=== PATIENT | male | born 1990 | race Caucasian/White ===

== ENCOUNTER 2017-05-22 18:45 | Emergency (ER) | payer MEDICAID, OTHER ==
[~2017-05-22] VITALS: Ht 188 cm; Wt 84.1 kg
[~2017-05-22 18:45] MED LIST: DICY10CA88 PO; NO HOME MEDS; ONDA4TAB59 PO; ORPH100T2 PO
[2017-05-22] MEDS ORDERED: normal saline 1000ml 1,000 ML IV ONE (20:15)
[2017-05-22 20:24] LABS: BASOPHILS % (AUTO) 0.2 % (0-1); EOSINOPHILS # (AUTO) 0.3 X10'3 (0-0.9); EOSINOPHILS % (AUTO) 7.3 % (0-6); HEMATOCRIT 43.3 % (42.0-52.0); HEMOGLOBIN 14.7 g/dl (14.0-17.9); LYMPHOCYTES # (AUTO) 1.7 X10'3 (1.1-4.8); LYMPHOCYTES % (AUTO) 35.7 % (21-51); MEAN CORPUSCULAR HEMOGLOBIN 30.3 PG (27.0-31.0); MEAN CORPUSCULAR VOLUME 88.9 FL (78-98); MEAN PLATELET VOLUME 8.3 FL (7.4-10.4); MONOCYTES # (AUTO) 0.7 X10'3 (0-0.9); MONOCYTES % (AUTO) 15.8 % (2-12); NEUTROPHILS # (AUTO) 1.9 X10'3 (1.8-7.7); PLATELET COUNT 241 X10'3 (140-440); RED BLOOD COUNT 4.87 X10'6 (4.70-6.10); RED CELL DISTRIBUTION WIDTH 12.4 % (11.5-14.5); WHITE BLOOD COUNT 4.7 X10'3 (4.5-11.0)
[2017-05-22] MEDS ORDERED: levoFLOXACIN 750MG TABLET PO ONE (20:35)
[2017-05-22 20:52] LABS: ALANINE AMINOTRANSFERASE 26 U/L (12-78); ALBUMIN 3.5 G/DL (3.4-5.0); ALBUMIN/GLOBULIN RATIO 0.9 (1.1-1.5); ALKALINE PHOSPHATASE 90 IU/L (46-116); ANION GAP 5 (8-16); ASPARTATE AMINO TRANSFERASE 22 U/L (10-37); BILIRUBIN,TOTAL 0.2 MG/DL (0.1-1.0); BLOOD UREA NITROGEN 10 MG/DL (7-18); BUN/CREATININE RATIO 11.5 (5.4-32.0); CALCIUM 8.7 MG/DL (8.5-10.1); CHLORIDE 102 MMOL/L (99-107); CREATININE 0.87 MG/DL (0.60-1.10); GLUCOSE 111 MG/DL (70-104); POTASSIUM 3.4 MMOL/L (3.5-5.1); SODIUM 137 MMOL/L (135-145); TOTAL CARBON DIOXIDE 30.3 MMOL/L (24-32); TOTAL PROTEIN 7.3 G/DL (6.4-8.2); eGFR > 90 ML/MIN
[2017-05-22] MEDS ORDERED: LEVO750T21 PO (21:09)
[2017-05-22 21:32] VITALS: BP 131/72
== END 2017-05-22 21:33 | disposition home or self-care (01) ==
LOC: ER 18:46
DX: R05 Cough (principal); Z79.899 Other long term (current) drug therapy
CPT/HCPCS: 36415; 71046; 80053; 83605; 85025; 87040; 99285; J7030

== ENCOUNTER 2018-05-01 20:54 | Emergency (ER) | payer MEDICAID, OTHER ==
[~2018-05-01] VITALS: Ht 188 cm; Wt 86.0 kg
[2018-05-01 20:57] VITALS: BP 146/109
[2018-05-01] MEDS ORDERED: ACYC-202 PO (22:18)
== END 2018-05-01 22:32 | disposition home or self-care (01) ==
LOC: ER 20:55
DX: B02.9 Zoster without complications (principal); M25.511 Pain in right shoulder; R21 Rash and other nonspecific skin eruption; M54.5 Low back pain; Z79.2 Long term (current) use of antibiotics; Z79.899 Other long term (current) drug therapy
CPT/HCPCS: 99283

== ENCOUNTER 2018-05-20 06:15 | Emergency (ER) | payer MEDICAID, OTHER ==
[~2018-05-20] VITALS: Ht 188 cm; Wt 87.6 kg
[2018-05-20 06:23] VITALS: BP 129/60
--- NOTE | 2018-05-20 08:43 | NUR ---
PT CAME IN WITH LACERATION ABOUT THE EYE. PT STATES HE FELL IN THE SHOWER. STORY SOUNDS QUESTIONABLE
== END 2018-05-20 09:24 | disposition home or self-care (01) ==
LOC: ER 06:15
DX: S01.112A Laceration without foreign body of left eyelid and periocular area, initial encounter (principal); S01.81XA Laceration without foreign body of other part of head, initial encounter; F17.200 Nicotine dependence, unspecified, uncomplicated; W01.198A Fall on same level from slipping, tripping and stumbling with subsequent striking against other object, initial encounter; Y93.89 Activity, other specified; Y92.091 Bathroom in other non-institutional residence as the place of occurrence of the external cause; Y99.9 Unspecified external cause status
CPT/HCPCS: 12014; 70450; 99284

== ENCOUNTER 2019-03-23 14:19 | Emergency (ER) | payer MEDICAID ==
[~2019-03-23] VITALS: Ht 185.4 cm; Wt 85.0 kg
--- NOTE | 2019-03-23 15:15 | NUR ---
says he normaly drinks a 5th or more of wiskey everyday but has gotten sick and hasnt had a drink for about 3 days now says his body aches and has trimers
[2019-03-23] MEDS ORDERED: folic acid 1mg/0.2ml inj IV ONE (15:25)
[2019-03-23] MEDS ORDERED: thiamine 100mg/ml 2ml inj. IV ONE (15:25)
[2019-03-23] MEDS ORDERED: ondansetron/PF 4mg/2ml inj IV ONE (15:25)
[2019-03-23] MEDS ORDERED: LORazepam 2 mg/ml vial IV ONE (15:25)
[2019-03-23] MEDS ORDERED: normal saline 1000ML IV soln IVB ONE (15:25)
[2019-03-23 15:44] LABS: BASOPHILS % (AUTO) 0.3 % (0-1); EOSINOPHILS % (AUTO) 0.4 % (0-6); HEMATOCRIT 43.9 % (42.0-52.0); HEMOGLOBIN 15.6 g/dl (14.0-17.9); LYMPHOCYTES # (AUTO) 1.4 X10'3 (1.1-4.8); MEAN CORPUSCULAR HEMOGLOBIN 30.9 PG (27.0-31.0); MEAN CORPUSCULAR HGB CONC 35.6 g/dL (33.0-36.5); MEAN CORPUSCULAR VOLUME 86.8 FL (78-98); MEAN PLATELET VOLUME 8.3 FL (7.4-10.4); MONOCYTES # (AUTO) 1.2 X10'3 (0-0.9); MONOCYTES % (AUTO) 10.4 % (2-12); NEUTROPHILS # (AUTO) 8.9 X10'3 (1.8-7.7); NEUTROPHILS % (AUTO) 76.9 % (42-75); PLATELET COUNT 204 X10'3 (140-440); RED BLOOD COUNT 5.05 X10'6 (4.70-6.10); RED CELL DISTRIBUTION WIDTH 12.4 % (11.5-14.5); WHITE BLOOD COUNT 11.6 X10'3 (4.5-11.0)
[2019-03-23 15:59] LABS: ALANINE AMINOTRANSFERASE 21 U/L (12-78); ALBUMIN 3.7 G/DL (3.4-5.0); ALBUMIN/GLOBULIN RATIO 0.8 (1.1-1.5); ALKALINE PHOSPHATASE 90 IU/L (46-116); ANION GAP 7 (8-16); ASPARTATE AMINO TRANSFERASE 18 U/L (10-37); BILIRUBIN,TOTAL 0.5 MG/DL (0.1-1.0); BLOOD UREA NITROGEN 10 MG/DL (7-18); BUN/CREATININE RATIO 9.9 (5.4-32.0); CALCIUM 8.7 MG/DL (8.5-10.1); CHLORIDE 98 MMOL/L (99-107); CREATININE 1.01 MG/DL (0.60-1.10); GLUCOSE 111 MG/DL (70-104); LIPASE 54 U/L (73-393); POTASSIUM 3.8 MMOL/L (3.5-5.1); SODIUM 135 MMOL/L (135-145); TOTAL CARBON DIOXIDE 29.9 MMOL/L (24-32); TOTAL PROTEIN 8.1 G/DL (6.4-8.2); eGFR 87 ML/MIN
[2019-03-23 16:00] LABS: ETHANOL < 0.010 GM/DL (0.0-0.010)
[2019-03-23] MEDS ORDERED: LORA-269 PO (16:22)
[2019-03-23] MEDS ORDERED: GABA300C PO (16:22)
[2019-03-23 16:43] VITALS: BP 113/62
== END 2019-03-23 17:31 | disposition home or self-care (01) ==
LOC: ER 14:19
DX: F10.239 Alcohol dependence with withdrawal, unspecified (principal); R07.89 Other chest pain; R10.84 Generalized abdominal pain; F17.200 Nicotine dependence, unspecified, uncomplicated; Z79.899 Other long term (current) drug therapy; Y90.0 Blood alcohol level of less than 20 mg/100 ml
CPT/HCPCS: 36415; 80053; 80320; 83690; 85025; 93005; 96374; 96375; 99284; J2060; J2405; J3411; J3490; J7030

== ENCOUNTER 2020-05-09 19:52 | Emergency (ER) | payer MEDICAID ==
[~2020-05-09] VITALS: Ht 185.4 cm; Wt 68.8 kg
[~2020-05-09 19:52] MED LIST changes: +GABA300C PO; +LORA-269 PO
--- NOTE | 2020-05-09 20:37 | NUR ---
PT DECIDED TO GO HOME AND SEEK CARE AT THE CLINIC TOMORROW
[2020-05-09] MEDS ORDERED: benzonatate 100mg capsule PO ONE (21:00)
[2020-05-09] MEDS ORDERED: AZIT-63 PO (21:00)
[2020-05-09] MEDS ORDERED: azithromycin 250mg tablet PO ONE (21:00)
[2020-05-09] MEDS ORDERED: BENZ-16 PO (21:00)
[2020-05-09 21:15] VITALS: BP 128/86
== END 2020-05-09 21:18 | disposition home or self-care (01) ==
LOC: ER 19:52
DX: J20.9 Acute bronchitis, unspecified (principal); R05 Cough; R50.9 Fever, unspecified; F17.200 Nicotine dependence, unspecified, uncomplicated; Z72.89 Other problems related to lifestyle; Z79.2 Long term (current) use of antibiotics; Z79.899 Other long term (current) drug therapy
CPT/HCPCS: 99283

== ENCOUNTER 2020-07-13 08:13 | Emergency (ER) | payer MEDICAID ==
[~2020-07-13] VITALS: Ht 185.4 cm; Wt 185.0 kg
[2020-07-13 08:56] VITALS: BP 143/97
[2020-07-13] MEDS ORDERED: dexamethasone sod phosphate 10mg/ml inj PO STA (09:09)
[2020-07-13] MEDS ORDERED: BENZ-16 PO (10:24)
== END 2020-07-13 10:52 | disposition home or self-care (01) ==
LOC: ER 08:13
DX: R05 Cough (principal); R53.83 Other fatigue; R07.89 Other chest pain; R09.89 Other specified symptoms and signs involving the circulatory and respiratory systems; Z72.89 Other problems related to lifestyle; Z79.899 Other long term (current) drug therapy
CPT/HCPCS: 71045; 99284; J1100

== ENCOUNTER 2020-08-04 03:34 | Emergency (ER) | payer MEDICAID ==
[~2020-08-04] VITALS: Ht 188 cm; Wt 84.1 kg
[~2020-08-04 03:34] MED LIST changes: +BENZ-16 PO
[2020-08-04] MEDS ORDERED: LEVO500T89 PO (03:53)
[2020-08-04] MEDS ORDERED: levoFLOXACIN 250mg tablet PO ONE (03:55)
[2020-08-04] MEDS ORDERED: acetaminophen 325mg tablet PO ONE (03:55)
[2020-08-04] MEDS ORDERED: ibuprofen tablet 400 MG TABLET PO ONE (03:55)
[2020-08-04 04:10] VITALS: BP 141/82
== END 2020-08-04 04:12 | disposition home or self-care (01) ==
LOC: ER 03:35
DX: J02.9 Acute pharyngitis, unspecified (principal); R05 Cough; F17.210 Nicotine dependence, cigarettes, uncomplicated; Z72.89 Other problems related to lifestyle; Z79.899 Other long term (current) drug therapy
CPT/HCPCS: 99284

== ENCOUNTER → 2021-03-10 | Emergency (ER) | payer MEDICAID ==
[~2021-03-10] MED LIST changes: -BENZ-16 PO
== END | disposition left against medical advice (07) ==
LOC: ER 22:31
DX: J40 Bronchitis, not specified as acute or chronic (principal); Z53.21 Procedure and treatment not carried out due to patient leaving prior to being seen by health care provider

== ENCOUNTER 2021-03-11 02:26 | Emergency (ER) | payer MEDICAID ==
[~2021-03-11] VITALS: Ht 188 cm; Wt 81.8 kg
[2021-03-11 03:06] VITALS: BP 132/78
== END 2021-03-11 07:27 | disposition left against medical advice (07) ==
LOC: ER 02:28
DX: R05.9 Cough, unspecified (principal); Z53.21 Procedure and treatment not carried out due to patient leaving prior to being seen by health care provider

== ENCOUNTER 2021-10-03 06:16 | Emergency (ER) | payer MEDICAID ==
[~2021-10-03] VITALS: Ht 188 cm; Wt 90.3 kg
[2021-10-03] MEDS ORDERED: normal saline 1000ml 1,000 ML IV ONE (06:45)
[2021-10-03] MEDS ORDERED: ondansetron/PF 4mg/2ml inj IV ONE (06:45)
[2021-10-03 07:35] LABS: BASOPHILS # (AUTO) 0.1 X10'3 (0-0.2); BASOPHILS % (AUTO) 0.6 % (0-1); EOSINOPHILS # (AUTO) 0.1 X10'3 (0-0.9); EOSINOPHILS % (AUTO) 0.4 % (0-6); HEMATOCRIT 49.6 % (42.0-52.0); HEMOGLOBIN 16.8 g/dl (14.0-17.9); LYMPHOCYTES # (AUTO) 0.8 X10'3 (1.1-4.8); LYMPHOCYTES % (AUTO) 3.7 % (21-51); MEAN CORPUSCULAR HEMOGLOBIN 29.3 PG (27.0-31.0); MEAN CORPUSCULAR HGB CONC 33.9 g/dL (33.0-36.5); MEAN CORPUSCULAR VOLUME 86.5 FL (78-98); MEAN PLATELET VOLUME 8.3 FL (7.4-10.4); MONOCYTES # (AUTO) 0.9 X10'3 (0-0.9); MONOCYTES % (AUTO) 4.1 % (2-12); NEUTROPHILS # (AUTO) 19.9 X10'3 (1.8-7.7); NEUTROPHILS % (AUTO) 91.2 % (42-75); PLATELET COUNT 397 X10'3 (140-440); RED BLOOD COUNT 5.73 X10'6 (4.70-6.10); RED CELL DISTRIBUTION WIDTH 12.8 % (11.5-14.5); WHITE BLOOD COUNT 21.8 X10'3 (4.5-11.0)
[2021-10-03 08:28] LABS: ALANINE AMINOTRANSFERASE 27 U/L (12-78); ALBUMIN 3.9 G/DL (3.4-5.0); ALKALINE PHOSPHATASE 98 IU/L (46-116); ANION GAP 11 (8-16); ASPARTATE AMINO TRANSFERASE 21 U/L (10-37); BILIRUBIN,TOTAL 0.8 MG/DL (0.1-1.0); BLOOD UREA NITROGEN 13 MG/DL (7-18); BUN/CREATININE RATIO 12.1 (5.4-32.0); CALCIUM 8.8 MG/DL (8.5-10.1); CHLORIDE 104 MMOL/L (99-107); CREATININE 1.07 MG/DL (0.60-1.10); GLUCOSE 114 MG/DL (70-104); LIPASE 63 U/L (73-393); POTASSIUM 3.7 MMOL/L (3.5-5.1); SODIUM 139 MMOL/L (135-145); TOTAL CARBON DIOXIDE 23.6 MMOL/L (24-32); TOTAL PROTEIN 7.9 G/DL (6.4-8.2); eGFR 80 ML/MIN
[2021-10-03] MEDS ORDERED: ONDA8TAB13 PO (10:48)
[2021-10-03 11:21] VITALS: BP 138/67
== END 2021-10-03 11:37 | disposition home or self-care (01) ==
LOC: ER 06:17
DX: R11.2 Nausea with vomiting, unspecified (principal); R19.7 Diarrhea, unspecified; R10.84 Generalized abdominal pain; Z87.81 Personal history of (healed) traumatic fracture
CPT/HCPCS: 36415; 80053; 83690; 85025; 96361; 96374; 99283; J2405; J7030

== ENCOUNTER 2022-03-03 23:03 | Emergency (ER) | payer MEDICAID ==
[~2022-03-03] VITALS: Ht 188 cm; Wt 87.4 kg
[~2022-03-03 23:03] MED LIST changes: +ONDA8TAB13 PO
[2022-03-03 23:27] VITALS: BP 149/94
== END 2022-03-04 05:10 | disposition left against medical advice (07) ==
LOC: ER 23:04
DX: R68.84 Jaw pain (principal); Z53.21 Procedure and treatment not carried out due to patient leaving prior to being seen by health care provider

== ENCOUNTER 2023-01-05 21:35 | Emergency (ER) | payer MEDICAID ==
[~2023-01-05] VITALS: Ht 185.4 cm; Wt 84.1 kg
[~2023-01-05 21:35] MED LIST changes: -ORPH100T2 PO; +ORPH100T4 PO
[2023-01-05 21:38] VITALS: BP 160/88; PULSE 105; RESP 16; TEMP 98.9; O2SAT 100
[2023-01-06] MEDS ORDERED: IBUP-1984 PO (07:43)
[2023-01-06] MEDS ORDERED: PRED20TA PO (07:43)
[2023-01-06] MEDS ORDERED: AMOX-580 PO (07:43)
== END 2023-01-06 01:29 | disposition left against medical advice (07) ==
LOC: ER 21:36
DX: K08.89 Other specified disorders of teeth and supporting structures (principal); Z53.21 Procedure and treatment not carried out due to patient leaving prior to being seen by health care provider
CPT/HCPCS: 99281

== ENCOUNTER 2023-01-06 05:27 | Emergency (ER) | payer MEDICAID ==
[~2023-01-06] VITALS: Ht 185.4 cm; Wt 92.8 kg
[2023-01-06 06:16] VITALS: BP 119/80; PULSE 86; RESP 16; TEMP 97.8; O2SAT 100
[2023-01-06] MEDS ORDERED: PRED20TA PO (07:43)
[2023-01-06] MEDS ORDERED: IBUP-1984 PO (07:43)
[2023-01-06] MEDS ORDERED: AMOX-580 PO (07:43)
== END 2023-01-06 07:52 | disposition home or self-care (01) ==
LOC: ER 05:27
DX: K04.7 Periapical abscess without sinus (principal); Z79.1 Long term (current) use of non-steroidal anti-inflammatories (NSAID); Z79.2 Long term (current) use of antibiotics; Z79.899 Other long term (current) drug therapy
CPT/HCPCS: 99283

== ENCOUNTER 2024-03-05 08:11 | Emergency (ER) | payer MEDICAID ==
[~2024-03-05] VITALS: Ht 188 cm; Wt 91.7 kg
[~2024-03-05 08:11] MED LIST changes: +ONDA-245 PO; -ONDA8TAB13 PO
[2024-03-05 08:21] VITALS: BP 118/73; PULSE 87; RESP 18; O2SAT 100
[2024-03-05] MEDS ORDERED: AMOX-101 PO (08:47)
[2024-03-05 09:11] VITALS: TEMP 97.8
== END 2024-03-05 09:12 | disposition home or self-care (01) ==
LOC: ER 08:11
DX: K08.89 Other specified disorders of teeth and supporting structures (principal); K03.81 Cracked tooth; F10.90 Alcohol use, unspecified, uncomplicated; F17.210 Nicotine dependence, cigarettes, uncomplicated; Z79.899 Other long term (current) drug therapy
CPT/HCPCS: 99281

== ENCOUNTER 2024-04-26 21:27 | Emergency (ER) | payer MEDICAID ==
[~2024-04-26] VITALS: Ht 188 cm; Wt 79.5 kg
[2024-04-26] MEDS ORDERED: AMOX-117 PO (21:46)
[2024-04-26] MEDS ORDERED: HYDR-3965 PO (21:46)
[2024-04-26 21:58] VITALS: BP 155/84; PULSE 99; RESP 20; TEMP 98.6; O2SAT 96
[2024-04-27] MEDS ORDERED: CLIN300C71 PO (23:07)
== END 2024-04-26 22:00 | disposition home or self-care (01) ==
LOC: ER 21:28
DX: K04.7 Periapical abscess without sinus (principal); Z79.899 Other long term (current) drug therapy
CPT/HCPCS: 99283

== ENCOUNTER 2024-04-27 22:29 | Emergency (ER) | payer MEDICAID ==
[~2024-04-27] VITALS: Ht 188 cm; Wt 93.6 kg
[~2024-04-27 22:29] MED LIST changes: +AMOX-117 PO; +HYDR-3965 PO
[2024-04-27 22:31] VITALS: BP 125/75; PULSE 93; RESP 16; O2SAT 95
[2024-04-27] MEDS ORDERED: CLIN300C71 PO (23:07)
[2024-04-27] MEDS: clindamycin 150mg capsule PO STA (23:29)
[2024-04-27] MEDS: HYDROcodone/acetaminophen 10/325mg tab PO STA (23:29)
[2024-04-27 23:36] VITALS: TEMP 97.9
== END 2024-04-27 23:37 | disposition home or self-care (01) ==
LOC: ER 22:30
DX: K04.7 Periapical abscess without sinus (principal); Z79.2 Long term (current) use of antibiotics; Z79.899 Other long term (current) drug therapy
CPT/HCPCS: 99283

== ENCOUNTER → 2025-02-15 | Emergency (ER) | payer MEDICAID ==
[~2025-02-15] VITALS: Ht 188 cm; Wt 95.5 kg
[~2025-02-15] MED LIST changes: -AMOX-117 PO; -HYDR-3965 PO
[2025-02-15 16:32] VITALS: BP 135/89; PULSE 99; RESP 18; TEMP 97.9; O2SAT 99
[2025-02-15 17:11] LABS: MEAN PLATELET VOLUME 8.0 FL (7.4-10.4); RED CELL DISTRIBUTION WIDTH 13.2 % (11.5-14.5)
[2025-02-15 17:20] LABS: CREATININE 0.85 MG/DL (0.60-1.10); TOTAL CARBON DIOXIDE 30.3 MMOL/L (24-32); eCRCL 140 ML/MIN; eGFR > 90 ML/MIN
--- NOTE | 2025-02-15 22:25 | Physician Documentation ---
History of Present Illness Chief Complaint: Abdominal Pain Stated Complaint: STOMACH PAIN Primary Medical Doctor: [facility] HPI This is a 34-year-old male who presents with one day of left lower quadrant abdominal pain described as sharp, patient reports no nausea, vomiting, or diarrhea. Patient reports no blood in stool and last bowel movement this morning. Patient reports history of heavy drinking with half a 5th of hard alcohol each day with last drink last night. Patient reports no other acute symptoms or concerns. Medication Reconciliation Allergies: Coded Allergies: No Known Allergies (Unverified , 08/04/20) Scheduled Dicyclomine Hcl* (Bentyl*), 1 CAP PO TID Gabapentin (Neurontin), 1 CAP PO Q8H Ondansetron Hcl (Ondansetron Hcl), 4 MG PO Q4H Scheduled PRN Lorazepam (Ativan), 1 TAB PO Q8H PRN for alcohol withdrawal Ondansetron 8mg ODT (Ondansetron Odt), 1 TAB PO Q8H PRN for nausea/vomiting Orphenadrine Citrate (Norflex), 100 MG PO Q12H PRN for pain Miscellaneous Medications Home Med List (No Home Medications), (Reported) Past Medical History Past Medical History: Extremity Fracture Past Surgical History: no surgical history Alcohol Use: Alcoholic Drug Use: none Lives with: Mother Lives In: Home Occupation: employed Review of Systems ROS As stated above in the HPI, otherwise all systems are reviewed and negative. Physical Exam Vital Signs: Temperature: 97.9, Source: Temporal, Heart Rate: 99, Respiratory Rate: 18, BP: 135/89, Pulse Oximetry: 99, Weight: 95.450 Oxygen Flow Rate: 0 Physical Exam VITALS: Reviewed and as above. GENERAL: Alert, nontoxic appearing, no apparent distress. RESPIRATORY: No increased work of breathing, no respiratory distress, speaking in full clear sentences Progress Results/Orders Results/Orders Orders - [facility] Urinalysis, Cult If Indicated (02/15/25 16:39) Completed Orders - [facility] Cbc/Diff (02/15/25 16:39) BMP (02/15/25 16:39) Lipase (02/15/25 16:39) CMP (02/15/25 16:39) Vital Signs 02/15/25 16:32 Temp 97.9 Pulse 99 Resp 18 B/P (MAP) 135/89 Pulse Ox 99 O2 Flow Rate 0 Laboratory Tests Test 02/15/25 16:53 White Blood Count 14.5 H Red Blood Count 5.43 Hemoglobin 16.2 Hematocrit 46.2 Mean Corpuscular Volume 85.1 Mean Corpuscular Hemoglobin 29.9 Mean Corpuscular Hemoglobin Concent 35.2 Red Cell Distribution Width 13.2 Platelet Count 327 Mean Platelet Volume 8.0 Neutrophils (%) (Auto) 75.2 H Lymphocytes (%) (Auto) 14.0 L Monocytes (%) (Auto) 9.3 Eosinophils (%) (Auto) 1.2 Basophils (%) (Auto) 0.3 Neutrophils # (Auto) 10.9 H Lymphocytes # (Auto) 2.0 Monocytes # (Auto) 1.3 H Eosinophils # (Auto) 0.2 Basophils # (Auto) 0.0 CBC Comment Sodium Level 141 Potassium Level 4.1 Chloride Level 103 Carbon Dioxide Level 30.3 Anion Gap 8 Blood Urea Nitrogen 10 Creatinine 0.85 Estimated GFR/1.73 m2 > 90 BUN/Creatinine Ratio 11.8 Glucose Level 84 Calcium Level 9.5 Total Bilirubin 0.5 Aspartate Amino Transf (AST/SGOT) 18 Alanine Aminotransferase (ALT/SGPT) 25 Alkaline Phosphatase 117 H Total Protein 8.2 Albumin 4.0 Globulin 4.2 Albumin/Globulin Ratio 1.0 L Lipase 37 Chemistry Comments Medical Decision Making Findings This otherwise well-appearing 34-year-old male with a history of heavy alcohol use presented with left lower quadrant abdominal pain described as sharp onset earlier today without nausea, vomiting, or diarrhea and no bloody stools. Patient is hemodynamically stable. MSE performed in triage and patient returned to ED lobby by nursing staff to await available ED room, lab work initiated. Patient appears to have eloped from lobby. Differential Dx:Considerations: Include: AAA, Angina/AL, Aortic dissection, Appendicitis, Bowel obstruction, Cholelithasis, Constipation, Diverticular disease, Gastritis/PUD, GI hemorrhage, Hernia, Inflammatory BD, Ischemic bowel, Testicular torsion, Trauma, intraabdominal, Urinary obstruction, Urinary tract infection, Urolithiasis Departure Disposition: LEFT AWOL/ELOPED Impression: Primary Impression: Abdominal pain Qualified Codes: R10.32 - Left lower quadrant pain Referrals: NO PRIMARY CARE PROVIDER (PCP) Signature Scribe Signature: No scribe Attestation: The note accurately reflects work and decisions made by me.JEAN-PIERRE Huber 02/15/25 22:24 [facility] Feb 15, 2025 22:25
== END | disposition home or self-care (01) ==
LOC: ER 16:20
DX: R10.32 Left lower quadrant pain (principal); Z79.899 Other long term (current) drug therapy
CPT/HCPCS: 36415; 80053; 83690; 85025; 99283

== ENCOUNTER 2025-04-09 15:29 | Emergency (ER) | payer MEDICAID ==
[~2025-04-09] VITALS: Ht 188 cm; Wt 90.6 kg
[2025-04-09 15:31] VITALS: BP 126/80; PULSE 111; RESP 18; O2SAT 98
[2025-04-09] MEDS ORDERED: CLIN300C63 PO (15:44)
[2025-04-09] MEDS ORDERED: HYDR-3965 PO (15:45)
--- NOTE | 2025-04-09 15:46 | Physician Documentation ---
HPI ~ General Chief Complaint: Tooth Problem Stated Complaint: TOOTH PAIN Time Seen by MD: 15:35 OK to notify your PCP?: Yes Primary [facility] Doctor[facility] Source: patient Mode of Arrival: POV Exam Limitations: no limitations History of Present Illness HPI Comment Dental pain to left upper molar and left lower molar with some discharge. Has plans to see a dentist next week. Has been taking Claridge 5s and took his last dose today which were left over from a previous prescription. He has not started any antibiotics. Medication Reconciliation Allergies: Coded Allergies: No Known Allergies (Unverified , 04/09/25) Scheduled Clindamycin HCl (Clindamycin HCl), 1 CAP PO Q6H Dicyclomine Hcl* (Bentyl*), 1 CAP PO TID Gabapentin (Neurontin), 1 CAP PO Q8H Ondansetron Hcl (Ondansetron Hcl), 4 MG PO Q4H Scheduled PRN Hydrocodone Bit/Acetaminophen 5/325 MG (Claridge 5/325 MG), 1 TAB PO TID PRN PRN for pain Lorazepam (Ativan), 1 TAB PO Q8H PRN for alcohol withdrawal Ondansetron 8mg ODT (Ondansetron Odt), 1 TAB PO Q8H PRN for nausea/vomiting Orphenadrine Citrate (Norflex), 100 MG PO Q12H PRN for pain Miscellaneous Medications Home Med List (No Home Medications), (Reported) Past Medical History Past Medical History: Extremity Fracture Past Surgical History: no surgical history Alcohol Use: Alcoholic Drug Use: none Lives with: Mother Lives In: Home Occupation: employed Review of Systems All Other Systems at this time: Reviewed and Negative Physical Exam Vital Signs: RN Vital Signs have been reviewed: Yes, Temperature: 98.3, Source: Temporal, Heart Rate: 111, Respiratory Rate: 18, BP: 126/80, Pulse Oximetry: 98, Weight: 90.600 Oxygen Flow Rate: 0 Pulse Oximetry Reflects: adequate oxygenation Physical Exam General: Alert, no distress. HEENT: No injection, moist mucous membranes. Neck: Full range of motion. Respiratory: No respiratory distress, equal chest rise and fall. Chest: No accessory muscle use. Cardiovascular: Regular rate and rhythm. Gastrointestinal: Nondistended. Extremities: Normal range of motion, no deformity. Neurologic: Oriented x4. Psychiatric: Normal mood and affect. Skin: Normal color, warm and dry. Palate: normal inspection Teeth/Gums: carious, necrotic, tender, draining, gingiva redness, other (No trismus) Teeth/Gums Tooth # 21, 14, 15 Progress Results/Orders Results/Orders Completed Orders - MARIZA HUFFMAN Clindamycin Capsule (Cleocin Capsule) (04/09/25 15:45) Vital Signs 04/09/25 15:31 Temp 98.3 Pulse 111 Resp 18 B/P (MAP) 126/80 Pulse Ox 98 O2 Flow Rate 0 Medical Decision Making Additional information obtaine: old records Findings Presents with 2 dental abscesses. He has been taking Claridge from a leftover prescription but ran out. I prescribed more Claridge so he should have enough to get him through till next week. We started him on clindamycin with the 1st dose given here. He has plans to follow up with the dentist next week. Differential Dx:Considerations: Include: Alveolar fracture, Alveolar osteitis, Facial Cellulitis, Periapical abscess, Tooth Fracture Departure Disposition: HOME / SELF CARE / HOMELESS Impression: Primary Impression: Dental abscess Condition: Stable Discharge Instructions: Dental Abscess Additional Instructions: Continue to follow up with dentist next week. Referrals: NO PRIMARY CARE PROVIDER (PCP) Prescriptions Hydrocodone Bit/Acetaminophen 5/325 MG (Claridge 5/325 MG) 5 Mg/325 Mg Tablet 1 TAB PO TID PRN PRN for pain for 5 Days, #15 TAB Prov: MARIZA HUFFMAN 04/09/25 Clindamycin HCl (Clindamycin HCl) 300 Mg Capsule 1 CAP PO Q6H for 10 Days, #40 CAP Prov: MARIZA HUFFMAN 04/09/25 Education Educated: Patient Educated regarding: diagnosis, treatment, prognosis, need for follow up Additional Comment Medical Screen Exam This patient recieved a medical screening examination. After reviewing the individual's medical complaints with presenting symptoms and performing an appropriate physical examination, it was determined that no immediate life- threatening emergency medical condition is present. This individual is also not a women having contractions. Signature Scribe Signature: . Attestation: Scribed for Mariza Huffman by Mariza Huffman - CHAYO . 04/09/25 15:48 Parts of this note were created using [employer] voice recognition software pro gram. While efforts were made to correct any mistakes made by this voice recognition software program, nonsensical phrases may remain in this note. In addition, there may be errors and syntax, grammar, content and spelling. MARIZA HUFFMAN [facility] Apr 09, 2025 15:46
[2025-04-09 15:53] VITALS: TEMP 98.3
== END 2025-04-09 15:56 | disposition home or self-care (01) ==
LOC: ER 15:29
DX: K04.7 Periapical abscess without sinus (principal)
CPT/HCPCS: 99283